=== PATIENT | male | born 1965 ===

== ENCOUNTER 2025-04-11 20:06 | Inpatient (IN) | payer OTHER ==
[~2025-04-11] VITALS: Ht 177.8 cm; Wt 109.0 kg
[~2025-04-11 20:06] MED LIST: NS 1,000 ML IV SCH
[2025-04-11] MEDS ORDERED: Carvedilol12.5 MG PO (22:24)
[2025-04-11] MEDS ORDERED: CELE200 PO (22:25)
[2025-04-11] MEDS ORDERED: HYDCHL25 PO (22:25)
[2025-04-11] MEDS ORDERED: PANT40 PO (22:25)
[2025-04-11] MEDS ORDERED: AMLO5 PO (22:26)
[2025-04-11] MEDS ORDERED: APAP500 MG PO (22:26)
[2025-04-11] MEDS ORDERED: Vitamin D1000 UNI1 PO (22:27)
[2025-04-11] MEDS ORDERED: Acerola C500 MG PO (22:27)
[2025-04-11] MEDS ORDERED: DEPO-TESTO200 MG/1 M SC (22:28)
[2025-04-11 22:36] VITALS: BP 143/95
[2025-04-11] MEDS ORDERED: Dose Adjust by Pharmacy XX STA (23:27)
[2025-04-11] MEDS ORDERED: Heparin Sodium,Porcine/0.5 NS 500 ML IV SCH (23:30)
[2025-04-11 23:35] LABS: Hematocrit 48.7 % (37.0-53.0); Hemoglobin 16.6 g/dL (13.5-17.5); Platelet Count 144 K/mm3 (150-400)
[2025-04-11 23:44] VITALS: BP 139/81
[2025-04-11 23:51] LABS: CHOL/HDL RATIO 8.0; Cholesterol 185 mg/dL (50-200); HDL Cholesterol 23 mg/dL (>39); LDL/HDL RATIO Unable to Calculate; Low Density Lipoprotein Chol Unable to Calculate mg/dL (0-110); Thyroid Stimulating Hormone 1.720 uIU/mL (0.360-4.800); Triglycerides 536 mg/dL (30-160); Very Low Density Lipoprot Chol Unable to Calculate mg/dL (6-32)
[2025-04-12] VITALS (13 sets, daily range): BP systolic 125–153; BP diastolic 80–111
[2025-04-12 00:08] LABS: Anti-Xa UFH, PHA Monitoring <0.10 IU/mL; Prothrombin Time Results 10.5 Sec (9.7-11.5)
--- NOTE | 2025-04-12 00:12 | NUR ---
LATE NOTE. PT ARRIVED ON UNIT @ ~2200. DIRECT ADMIT FROM [facility]. AOX4, PLEASANT, COOPERATIVE, ABLE TO MAKE NEEDS KNOWN. DENIES ANY PAIN SINCE ARRIVAL. VITALS STABLE. RUNNING SINUS W/PVCs SINCE ARRIVAL. MAINTAINING ADEQUATE SATURATION ON ROOM AIR. DR. JOHN AND DR. INGRAM TO ROOM TO EVALUATE SINCE ARRIVAL. CARDIOLOGY CONSULT CALLED IN. PT NPO AFTER 0000 IN CASE OF POSSIBLE PROCEDURE IN MORNING, PT EDUCATED AND UNDERSTANDING. ADMISSION PROCESS COMPLETED PER PROTOCOL. BED LOCKED IN LOWEST POSITION. CALL LIGHT LEFT WITHIN REACH. CONTINUING TO MONITOR.
[2025-04-12 03:12] LABS: BASOPHILS ABSOLUTE AUTO 0.03 K/mm3 (0.00-0.23); BASOPHILS PERCENT AUTO 0 % (0-2); EOSINOPHILS ABSOLUTE AUTO 0.13 K/mm3 (0.00-0.68); EOSINOPHILS PERCENT AUTO 1 % (0-6); Hematocrit 47.1 % (37.0-53.0); Hemoglobin 16.3 g/dL (13.5-17.5); IMMATURE GRAN ABSOLUTE AUTO 0.02 K/mm3 (0.00-0.10); IMMATURE GRAN PERCENT AUTO 0 % (0-1); LYMPHOCYTES ABSOLUTE AUTO 2.71 K/mm3 (0.84-5.20); LYMPHOCYTES PERCENT AUTO 22 % (21-46); MONOCYTES ABSOLUTE AUTO 0.72 K/mm3 (0.16-1.47); MONOCYTES PERCENT AUTO 6 % (4-13); Mean Corpuscular HGB Conc 34.6 g/dL (31.5-36.5); Mean Corpuscular Volume 91 fL (80-100); NEUTROPHILS ABSOLUTE AUTO 8.62 K/mm3 (1.96-9.15); NEUTROPHILS PERCENT AUTO 70 % (41-73); NRBC ABSOLUTE 0.00 K/mm3 (0.00-0.02); NRBC Auto 0.0 /100 WBC (0.0-0.2); Platelet Count 144 K/mm3 (150-400); RDW Coefficient Variation 14.6 % (11.7-14.2); RDW Standard Deviation 49.0 fL (35.1-46.3)
[2025-04-12 03:29] LABS: Prothrombin Time Results 10.9 Sec (9.7-11.5)
[2025-04-12 03:45] LABS: Alanine Aminotransfer (ALT/SGP 37.0 U/L (12-78); Albumin, Blood 3.9 g/dL (3.4-5.0); Albumin/Globulin Ratio 1.3 (0.8-1.8); Anion Gap 11.0 mmol/L (3-11); Aspartate Aminotrans (AST/SGOT 31.0 U/L (12-37); Bilirubin, Total 0.8 mg/dL (0.1-1.0); Blood Urea Nitrogen 13.0 mg/dL (8-24); CO2, Blood 25.0 mmol/L (21-32); Calcium, Blood 8.0 mg/dL (8.5-10.1); Chloride, Blood 107.0 mmol/L (98-108); Creatinine, Blood 1.05 mg/dL (0.60-1.20); Globulin, Blood 2.9 g/dL (2.2-4.0); Glucose, Blood 120.0 mg/dL (70-99); Magnesium, Blood 2.0 mg/dL (1.6-2.4); Potassium, Blood 3.6 mmol/L (3.5-5.5); Sodium, Blood 139.0 mmol/L (136-145); Total Protein, Blood 6.8 g/dL (6.4-8.2)
--- NOTE | 2025-04-12 04:32 | NUR ---
SHIFT SUMMARY. SHIFT HAS GONE WELL SINCE ADMISSION NOTE. SEE PREVIOUS NOTE FOR EXPANDED DETAILS. CONTINUES TO RUN SINUS W/ PVCs ON TELE, OFTEN BRADYCARDIC WHILE SLEEPING. CARDIOLOGY CONSULT CALLED IN LATE LAST NIGHT. VITALS HAVE REMAINED STABLE. CONTINUES TO MAINTAIN ADEQUATE SATURATION ON ROOM AIR. INDEPENDENT WITH URINAL AND CALLS APPROPRIATELY FOR ASSISTANCE. HEPARIN DRIP RUNNING PER EMAR. CALL LIGHT WITHIN REACH. BED LOCKED IN LOWEST POSITION. CONTINUING TO MONITOR.
[2025-04-12] MEDS ORDERED: Dose Adjust by Pharmacy XX STA (06:13)
[2025-04-12] MEDS ORDERED: Heparin Sodium 5000 Units/ML 1ML MDV IV ONE (06:15)
[2025-04-12] MEDS ORDERED: Nitroglycerin 2 MG/20 ML BTL ONE (07:49)
[2025-04-12] MEDS ORDERED: NS 1,000 ML IV ONE ×2 (07:49→08:21)
[2025-04-12] MEDS ORDERED: NS 250 ML IV ONE (07:49)
[2025-04-12] MEDS ORDERED: NiCARdipine HCL 1,000 MCG/5 ML SYR ONE (07:49)
[2025-04-12] MEDS ORDERED: Heparin Sodium 1000 Units/ML 10ML MDV ONE ×2 (07:49→08:59)
--- NOTE | 2025-04-12 08:00 | NUR ---
MORNING NOTE THE PT SI A&OX4, SBA IN THE ROOM D/T LINE MANAGEMENT, AND HE CAN MAKE HIS NEEDS KNOWN. ON TELE HE IS SB 40'S-50'S. BP SOFT POST SL NITRO. PT WAS HAVING 8/10 CHEST PRESSURE/PAIN AT SHIFT CHANGE. NIGHT RN ZENA MEDICATED TO PT WITH TWO SL NITRO PER EMAR. PAIN NOW AT A 3/10. THE PT IS AUDIABLY WHEEZY AND STATES HE HAS BEEN SOB FOR DAYS, NO IMPROVEMENT. HE IS ON RA W/ SP02 >93%. DR. SIMS CAME TO BEDSIDE, EKG COMPLETED. DR. SIMS SPOKE TO DR. PHAN AND IS TKAING TO THE PT FOR AN ANGIOGRAM THIS MORNING. THE CARPET INSTALLER HELPER NURSES CALLED AND STATED THEY WERE ON THEIR WAY TO GET THE PT. ZAYRA, THE PT'S WAS CALLED BY THIS RN AND UPDATED ON CARE FOR THE PT. SHE IS PLANNING ON HEADING TO [place] HOSPITAL[place] SEE NOTES FOR UPDATES.
[2025-04-12] MEDS ORDERED: FentaNYL Citrate 50 MCG/ML 2 ML Injection ONE (08:20)
[2025-04-12] MEDS ORDERED: Midazolam HCl 1MG / ML 2ML Vial ONE ×2 (08:21→09:29)
[2025-04-12] MEDS ORDERED: NS 500 ML IV ONE (08:59)
[2025-04-12] MEDS ORDERED: Acetaminophen/Codeine 300-30 mg PO PRN (10:05)
[2025-04-12] MEDS ORDERED: NS 1,000 ML IV SCH (10:05)
--- NOTE | 2025-04-12 11:09 | NUR ---
POST ANGIOGRAM PT BACK FROM THE RAIL PROJECT ENGINEER POST 2XPCI TO THE DISTAL RCA AND MID REMUS. RIGHT RADIAL ACCESS. HEMATOMA NOTED DURING BEDSIDE REPORT WITH THE RAIL PROJECT ENGINEER NURSES . THIS RN BEGAN HOLDING PRESSURE ON THE SITE. SENIOR ACCOUNTING SPECIALIST GABE AT BEDSIDE AND AWARE. RUPAL OTHER PRIMARY RN AT BEDSIDE AND SET UP SEQUENCE VITAL PER ORDER. TRBAND INTACT W/ 10CC'S IN THE BALLON. NO DISCOLORATION NOTED AT THAT TIME, AND PT WAS DENYING N/T IN DISTAL FINGERS. THE PT WAS STILL HAVING HEMATOMA ISSUES PROXIMAL TO THE SITE AND THIS RN HAD TO HOLD PRESSURE FOR AT LEAST THIRTY MINUTES. AFTER DISCUSSING CONTINUED HEMATOMA WITH SENIOR ACCOUNTING SPECIALIST GABE. THIS RN CALLED THE RAIL PROJECT ENGINEER NURSES AND NOVEMBER CAME UP AND ADDED A 2ND TR BAND PROXIMAL TO THE EXSISTING SITE. 6CC'S IN THE BALLOON TO HELP WITH HEMATOMA. THERE IS NOW NOTED DISCOLORATION IN THE PT'S DISTAL FINGERS AND HE IS C/O N/T. HE STILL HAS A GOOD OXYGEN PLETH ON THE DISTAL FINGERS. ECHO CURRENTLY BEING COMPLETED, AND THE PT CALLED HIS WITH UPDATED POST PROCEDURE. SEE NOTES FOR UPDATES.
[2025-04-12] MEDS ORDERED: HYDROmorphone HCl/Pf 1MG SYR IV PRN (13:30)
--- NOTE | 2025-04-12 14:59 | NUR ---
RIGHT WRIST HEMATOMA UPDATE THE PT WAS WEARING THE SECOND TR BAND FOR ABOUT THREE HOURS BEFORE THE AIR WAS SLOWLY TITRAIRED OUT OF THE TR BAND. BY TIME THE SECONDARY BAND WAS REMOVED ABOUT 1345, THE PT'S HEMATOMA STARTED TO REFORM. COLLAR BASTER CAME TO THE ROOM TO ASSESS THE SITE WITH THIS RN. MANNUAL PRESSURE HELD FOR ANOTHER 10MINUTES. TIME FROM THE RESEARCH CHEF CAME AND EVALUATE THE RIGHT RADIAL SITE AND STATED TO WAIT THIRTY MINUTES TO REASSES. THIS RN WAS OFF THE FLOOR AND SHAD RN ASSESSED THE SITE WITH [facility] RN ELO. THE SECOND TRBAND WAS REPLACED AT ABOUT 1430. DR. PHAN CAME TO THE ROOM ABOUT 1515 AND STATED TO LEAVE THE SECOND TRBAND ON FOR ABOUT TWO HOURS AND START SLOWLY DEFLATING THE SITE. HE GAVE THE PT A 5 DAY WEIGHT LIFT RESTRICTION OF NO MORE THEN A GALLON OF MILK. CAP REFILL <3SEC, PAIN MANAGED WITH IV PAIN MEDICATIONS PER EMAR, AND BRUISING NOTED T/O THE PT'S RIGHT WRIST. SEE NOTES FOR ANY UPDATES.
[2025-04-12] MEDS ORDERED: Ondansetron HCl 2 MG / ML 2ML Vial IV PRN (15:05)
--- NOTE | 2025-04-12 17:53 | NUR ---
SHIFT SUMMARY SEE PREVIOUS NOTES. PT IS A&0 X4, COOPERATIVE W/ CARE, AND HAS BEEN ABLE TO APPROPRIATELY COMMUNICATE NEEDS. PT AMBULATES IN RM IND AND IS AWARE/ COMPLIANT W/ INSTRUCTION TO AVOID USE OF R HAND. C/O PAIN OFF AND ON AT R. RADIAL SITE D/T HEMATOMA AT TR BAND, MANAGING PAIN W/ MEDICATION PER EMAR. PT HAS BEEN FREE OF CHEST PAIN SINCE RETURN FROM ANGIO WITH PCI INTERVENTION X2. HE SUSTAINED SINUS CAMILO 40s-60s W/ PVCs THIS AM PRIOR TO PROCEDURE AND HAS SINCE BEEN SB-SR 50s-60s W/ BIGEMINAL PVCs. BPs STABLE. PT C/O SOB THIS AM BUT HAS BEEN SATTING ABOVE 93% ON RA AND DENIES ANY FURTHER SOB SINCE RETURN FROM ANGIO. PRE AND POST PCI EKGs COMPLETED, ECHO COMPLETED, SEE CHART. REPEAT EKG ORDERED FOR 04/14 MORNING. EDUCATION PROVIDED TO PT AND PT'S ON MOVEMENT AND LIFTING RESTRICTIONS, DIETARY CHANGES, AND OTHER CARES. VSS AT THIS TIME. PT CONTINUES TO HAVE R WRIST HEMATOMA, STATED PAIN HAS IMPROVED BUT IS CAUSTICS LOADER TO TOUCH. ONE TR BAND IN PLACE WITH 10CC IN BAND. HEMATOMA OUTLINED AND TIMED. DR RIDDLE WANTS TO BE NOTIFIED IF BLEEDING WORSENS AND IT APPEARS TO BE ARTERIAL. SEE NOTES FOR UPDATES.
[2025-04-13 03:15] VITALS: BP 150/105
--- NOTE | 2025-04-13 04:55 | NUR ---
SHIFT SUMMARY. SHIFT HAS GONE WELL OVERALL. AOX4, PLEASANT, COOPERATIVE, ABLE TO MAKE NEEDS KNOWN. TR BAND FULLY RECOVERED EARLY IN SHIFT. TEGADERM AND ARM BOARD IN PLACE, TEGADERM C/D/I THROUGHOUT SHIFT THUS FAR. CONTINUES TO RUN SINUS W/PVCs ON TELE. CONTINUES TO MAINTAIN ADEQUATE SATURATION ON ROOM AIR. HAS DENIED PAIN THROUGHOUT SHIFT. INDEPENDENT TO BATHROOM, CALLS APPROPRIATELY FOR ASSISTANCE, URINE OUTPUT CHARTED APPROPRIATELY. 0500 EKG PERFORMED. BED LOCKED IN LOWEST POSITION. CALL LIGHT LEFT WTIHIN REACH. CONTINUING TO MONITOR.
[2025-04-13 06:13] LABS: BASOPHILS ABSOLUTE AUTO 0.03 K/mm3 (0.00-0.23); BASOPHILS PERCENT AUTO 0 % (0-2); EOSINOPHILS ABSOLUTE AUTO 0.10 K/mm3 (0.00-0.68); EOSINOPHILS PERCENT AUTO 1 % (0-6); Hematocrit 50.9 % (37.0-53.0); Hemoglobin 17.1 g/dL (13.5-17.5); IMMATURE GRAN ABSOLUTE AUTO 0.04 K/mm3 (0.00-0.10); IMMATURE GRAN PERCENT AUTO 0 % (0-1); LYMPHOCYTES ABSOLUTE AUTO 2.16 K/mm3 (0.84-5.20); LYMPHOCYTES PERCENT AUTO 17 % (21-46); MONOCYTES ABSOLUTE AUTO 0.99 K/mm3 (0.16-1.47); MONOCYTES PERCENT AUTO 8 % (4-13); Mean Corpuscular HGB Conc 33.6 g/dL (31.5-36.5); Mean Corpuscular Volume 92 fL (80-100); NEUTROPHILS ABSOLUTE AUTO 9.78 K/mm3 (1.96-9.15); NEUTROPHILS PERCENT AUTO 75 % (41-73); NRBC ABSOLUTE 0.00 K/mm3 (0.00-0.02); NRBC Auto 0.0 /100 WBC (0.0-0.2); Platelet Count 160 K/mm3 (150-400); RDW Coefficient Variation 14.8 % (11.7-14.2); RDW Standard Deviation 50.2 fL (35.1-46.3)
[2025-04-13 06:41] LABS: Alanine Aminotransfer (ALT/SGP 42.0 U/L (12-78); Albumin, Blood 4.2 g/dL (3.4-5.0); Albumin/Globulin Ratio 1.2 (0.8-1.8); Anion Gap 11.0 mmol/L (3-11); Aspartate Aminotrans (AST/SGOT 44.0 U/L (12-37); Bilirubin, Total 1.2 mg/dL (0.1-1.0); Blood Urea Nitrogen 9.0 mg/dL (8-24); CO2, Blood 24.0 mmol/L (21-32); Calcium, Blood 8.7 mg/dL (8.5-10.1); Chloride, Blood 107.0 mmol/L (98-108); Creatinine, Blood 0.95 mg/dL (0.60-1.20); Globulin, Blood 3.5 g/dL (2.2-4.0); Glucose, Blood 115.0 mg/dL (70-99); Magnesium, Blood 2.0 mg/dL (1.6-2.4); Potassium, Blood 3.7 mmol/L (3.5-5.5); Sodium, Blood 138.0 mmol/L (136-145); Total Protein, Blood 7.7 g/dL (6.4-8.2)
[2025-04-13 08:29] VITALS: BP 153/82
[2025-04-13] MEDS ORDERED: CARV3.125 PO (11:43)
[2025-04-13] MEDS ORDERED: ASPI81CH PO (11:45)
[2025-04-13] MEDS ORDERED: Lipitor80 MG PO (11:46)
[2025-04-13] MEDS ORDERED: LOSA25 PO (11:47)
[2025-04-13] MEDS ORDERED: PRASUGREL HCL10 MG PO (11:47)
[2025-04-13] MEDS ORDERED: NITR.4SL SL (11:47)
[2025-04-13 12:08] VITALS: BP 129/76
--- NOTE | 2025-04-13 12:55 | NUR ---
D/C SUMMARY THE PT IS A&OX4, IND IN THE ROOM, COOPERATIVE/UNDERSTANDING OF RIGHT WRIST RESTRICTIONS, AND WAS ABLE TO MAKE HIS NEEDS KNOWN. DR. PHAN SAW THE PT AND CLEAERED HIM FOR DISCHARGE. ON TELE THE PT WAS SR 70'S-80'S W/ PVC'S. BP STABLE. HE HAS BEEN ON RA AND HAS DENIED ANY SOB. THE PT STATED HE "FEELS LIKE $100 DOLLARS". THE PTS RIGHT RADIAL SITE DID HAVE ISSUES FROM THE HEMATOMA 04/12 BUT HAS IMPROVED. SITE WITH A TEGADERM C/D/I. BRUISING SPREAD T/O RIGHT WRIST. SITE IS NONTENDER. THE PTS MEDICATIONS WERE FAXED TO [facility]. RUPAL KNIGHT WENT OVER DICHARGE INSTRUCTIONS WITH THE PT AND ANSWERED ALL QUESTIONS THE PT AND HIS ZAYRA HAD. ALSO, DR. PHAN CLEAERED THE PT TO RESUME SEXUAL ACTIVITY IN 3-5 DAYS. ALL BELONGING AND STENT CARD WITH THE PT. NO FURTHER NOTES FROM THIS RN.
--- NOTE | 2025-04-14 12:53 | NUR ---
RX CALLED IN FOR LOSARTAIN 25MG PO DAILY #30 AND NITRO 0.4MG SL Q5X3 PRN CHEST PAIN #[address] CHU.
== END 2025-04-13 12:33 | disposition home or self-care (01) | DRG 322 ==
LOC: PCU 20:06
PROVIDERS: Internal Medicine Cardiovascular Disease; Student in an Organized Health Care Education/Training Program; ADMIT Student in an Organized Health Care Education/Training Program
PROC: 027135Z Dilation of Coronary Artery, Two Arteries with Two Drug-eluting Intraluminal Devices, Percutaneous Approach (ICD-10-PCS; principal; 2025-04-12)
PROC: B2111ZZ Fluoroscopy of Multiple Coronary Arteries using Low Osmolar Contrast (ICD-10-PCS; 2025-04-12)
PROC: 4A023N7 Measurement of Cardiac Sampling and Pressure, Left Heart, Percutaneous Approach (ICD-10-PCS; 2025-04-12)
DX: I21.4 Non-ST elevation (NSTEMI) myocardial infarction (principal); I25.10 Atherosclerotic heart disease of native coronary artery without angina pectoris; I10 Essential (primary) hypertension; E78.2 Mixed hyperlipidemia; E66.9 Obesity, unspecified; G47.33 Obstructive sleep apnea (adult) (pediatric); K21.9 Gastro-esophageal reflux disease without esophagitis; Z68.36 Body mass index [BMI] 36.0-36.9, adult; Z87.891 Personal history of nicotine dependence; Z91.048 Other nonmedicinal substance allergy status; Z79.899 Other long term (current) drug therapy
CPT/HCPCS: 36415; 76937; 80053; 80061; 83036; 83735; 83880; 84443; 84484; 85014; 85018; 85025; 85049; 85347; 85520; 85610; 85730; 93005; 93010; 93306; 93454; 99152; 99153; A9270; C1725; C1769; C1874; C1887; C1894; C9600; J1171; J1644; J2250; J3010; J7030; J7040; J7050; Q9967